=== PATIENT | female | born 1990 | race Caucasian/White ===

== ENCOUNTER 2018-04-20 08:50 | Day surgery (SDC) | payer OTHER ==
[~2018-04-20 08:50] MED LIST: CEFAZOLIN 1 GM INJ; LIDOCAINE 2% (SDV) 5 ML INJ; ROCURONIUM 50 MG INJ
[2018-04-20] MEDS ORDERED: CEFAZOLIN 1 GM/50 ML (PMX) 50 ML IVPB (09:30)
[2018-04-20] MEDS: SOD CHLORIDE 0.9% 1,000 ML IV (09:49)
[2018-04-20] MEDS ORDERED: POLYMYXIN/BACITRACIN 1L IRRIG (10:37)
[2018-04-20] MEDS ORDERED: ACETAMINOPHEN 1000MG/100ML IV 100 ML (10:56)
[2018-04-20] MEDS ORDERED: PROPOFOL 100 ML (10:56)
[2018-04-20] MEDS ORDERED: HYDROmorphONE 1 MG/5 ML IV SYRINGE IV (11:00)
[2018-04-20] MEDS ORDERED: DIPHENHYDRAMINE 50 MG INJ IV (11:00)
[2018-04-20] MEDS ORDERED: EPHEDrine SULFATE 50 MG/5 ML SYG IV (11:00)
[2018-04-20] MEDS ORDERED: MIDAZOLAM 1 MG/ML 2 ML INJ IV (11:00)
[2018-04-20] MEDS ORDERED: LABETALOL HCL 20MG INJ IV (11:00)
[2018-04-20] MEDS ORDERED: ALBUTEROL 0.083% (NEB) 2.5 MG/3 ML AMP HHN (11:00)
[2018-04-20] MEDS ORDERED: METOCLOPRAMIDE 10 MG INJ IV (11:00)
[2018-04-20] MEDS ORDERED: KETOROLAC 30 MG INJ IV ×2 (11:00→13:00)
[2018-04-20] MEDS ORDERED: FENTAnyl 50 MCG/ML VIAL IV ×3 (11:00)
[2018-04-20] MEDS ORDERED: OXYCODONE/ACETAMINOPHEN (5/325) TAB PO ×4 (11:00→13:00)
[2018-04-20] MEDS ORDERED: hydrALAzine 20 MG INJ IV (11:00)
[2018-04-20] MEDS: BUPIVACAINE 0.25%/EPI (SDV) 30 ML INJ (11:23)
[2018-04-20] MEDS ORDERED: DEXAMETHASONE 4 MG/ML 1 ML INJ (11:29)
[2018-04-20] MEDS ORDERED: ONDANSETRON 4 MG INJ (11:30)
[2018-04-20] MEDS ORDERED: LABETALOL HCL 20MG INJ (11:38)
[2018-04-20] MEDS ORDERED: morphine 2 MG INJ IV (13:00)
[2018-04-20] MEDS ORDERED: IBUPROFEN 600 MG TAB PO (13:00)
[2018-04-20] MEDS ORDERED: ONDANSETRON 4 MG INJ IV (13:00)
[2018-04-20] MEDS: HYDROmorphONE 1 MG/5 ML IV SYRINGE IV ×2 (13:29→13:39)
[2018-04-20] MEDS: ONDANSETRON 4 MG INJ IV (13:30)
[2018-04-20] MEDS: MEPERIDINE 25 MG INJ IV (13:30)
== END 2018-04-20 15:25 | disposition home or self-care (01) ==
LOC: SDS 08:50
DX: K43.9 Ventral hernia without obstruction or gangrene (principal); K42.9 Umbilical hernia without obstruction or gangrene
CPT/HCPCS: 49652; 88302